=== PATIENT | female | born 1990 | race Caucasian/White ===

== ENCOUNTER 2016-09-30 13:15 | Emergency (ER) | payer OTHER ==
[2016-09-30] MEDS ORDERED: MOTRIN 600 MG PO ONE (13:26)
[2016-09-30] MEDS ORDERED: CORTISPORIN EAR DROPS 10 ML SUSPENSION OT STA (13:27)
[2016-09-30] MEDS ORDERED: CORTISPORIN EAR DROPS 10 ML SUSPENSION OT ONE (13:32)
[2016-09-30] MEDS ORDERED: MOTRIN 600 MG ONE (13:32)
[2016-09-30 13:33] VITALS: BP 107/65; PULSE 100; O2SAT 100
--- NOTE | 2016-09-30 13:34 | ERPHSYRPT ---
- History of Present Illness Time Seen by Provider: 09/30/16 13:24 Source: patient Physician History: right ear pain wihtout d/c after swimming ysterday; otherwise healthy; noother complaints; no prior hx; hearing ok no fever Timing/Duration: abrupt onset, yesterday Severity: severe ENT Location: ear (R) Prearrival Treatment: no prearrival treatment Modifying Factors: Improves With: other (Swimming) Associated Symptoms: ear pain (R) Allergies/Adverse Reactions: No Known Drug Allergies Allergy (Unverified 08/08/12 12:46) Home Medications: Albuterol 8 gm Mdi Hfa [Ventolin Hfa MDI] 8 gm IH PRN 08/08/12 [History] Amoxicillin 500 mg PO TID 08/08/12 [History] Fluticasone/Salmeterol [Advair 100-50 Diskus] 1 each IH BID 08/08/12 [History] Hx Tetanus, Diphtheria Vaccination/Date Given: Yes Hx Influenza Vaccination/Date Given: Yes Hx Pneumococcal Vaccination/Date Given: No - Review of Systems Constitutional: No Symptoms Eyes: No Symptoms Ears, Nose, & Throat: Ear Pain (right side only), No Ear Discharge, No Hearing Changes, No Tinnitus, No Epistaxis, No Throat Pain Respiratory: No Cough, No Dyspnea, No Wheezing Cardiac: No Chest Pain, No Palpitations, No Syncope Abdominal/Gastrointestinal: No Abdominal Pain, No Nausea, No Vomiting, No Diarrhea Genitourinary Symptoms: No Symptoms Musculoskeletal: No Symptoms Skin: No Symptoms Neurological: No Symptoms Psychological: No Symptoms - Past Medical History Pertinent Past Medical History: Yes Respiratory History: Asthma - Past Surgical History Past Surgical History: No - Social History Smoking Status: Current every day smoker Exposure to second hand smoke: Yes Alcohol Use: Socially Drug Use: none Patient Lives Alone: No Significant Family History: no pertinent family hx - Female History Hx Now: No - Physical Exam General Appearance: moderate distress (pain right ear), alert, thin Eye Exam: bilateral eye: normal inspection, PERRL, EOMI Ear Exam: right ear: erythema (external auditory canal), tenderness (external auditory canal), left ear: canal normal, bilateral ear: auricle normal, TM normal Nasal Exam: normal inspection, No dried blood, No foreign body Throat Exam: normal, pharynx normal, moist mucus membranes Neck Exam: normal inspection, non-tender, supple, full range of motion, lymphadenopathy (R), No stiff neck, No Brudzinski's sign, No meningismus Cardiovascular/Respiratory Exam: chest non-tender, normal breath sounds, regular rate/rhythm, heart sounds normal, no JVD, no M/R/G, no respiratory distress Abdominal Exam: non-tender, soft, no organomegaly Neurologic Exam: alert, oriented x 3, cooperative, mold carrier II-XII nml as tested, normal mood/affect, nml cerebellar function, nml station & gait Skin Exam: normal color, warm, dry, No rash - Course Nursing assessment & vital signs reviewed: Yes Ordered Tests: Active Orders 24 hr Category Date Time Status Re-Check Vital Signs STAT Care 09/30/16 13:26 Ordered Medication Summary Discontinued Medications Generic Name Dose Route Start Last Admin Trade Name Freq PRN Reason Stop Dose Admin Ibuprofen 600 mg 09/30/16 13:26 Motrin 600 Mg PO 09/30/16 13:27 STAT ONE Neomycin/Polymyxin/Hydrocortisone 1 ml 09/30/16 13:27 Cortisporin Ear Drops 10 Ml Suspension OT 09/30/16 13:28 STAT STA - Progress Progress Note: 09/30/16 13:33 explained findings, treatment plan, medications given, instructions Counseled pt/family regarding: diagnosis, need for follow-up - Departure Time of Disposition: 13:34 Departure Disposition: Home Clinical Impression: Acute otitis externa of right ear Condition: Stable Critical Care Time: No Instructions: Otitis Externa Additional Instructions: No swimming; keep water out of; use eardrops as directed; Follow-up with family doctor as directed. Call for appointment. Return if any problems. If you smoke please stop. Call or follow up with your family doctor for assistance if you need it to stop. Please wear your seatbelt when driving. Have a nice day. Thank you for allowing us to participate in your care today. :o) Dr Nahid Murrell
== END 2016-09-30 13:44 | disposition home or self-care (01) ==
LOC: ED 13:15
DX: H60.91 Unspecified otitis externa, right ear (principal)
CPT/HCPCS: 99283; A9270-GY

== ENCOUNTER 2017-02-27 19:25 | Emergency (ER) | payer OTHER ==
--- NOTE | 2017-02-27 19:48 | ERPHSYRPT ---
- History of Present Illness Time Seen by Provider: 02/27/17 19:46 Source: patient Exam Limitations: no limitations Patient Subjective Stated Complaint: pt states she has had cough and generalized aches for approx 3 days Triage Nursing Assessment: pt alert and oriented, answers questions approp. pt ambultory with steady gait noted. respirations nonlabored with lungs cta. occasional nonproductive cough noted. Physician History: pt states she has had cough and generalized aches for approx 3 days Timing/Duration: day(s) Cough Quality/Degree: dry cough Associated Symptoms: muscle aches Allergies/Adverse Reactions: No Known Drug Allergies Allergy (Verified 02/27/17 19:44) Home Medications: No Reportable Medications [No Reported Medications] 09/30/16 [History] Hx Tetanus, Diphtheria Vaccination/Date Given: Yes Hx Influenza Vaccination/Date Given: No Hx Pneumococcal Vaccination/Date Given: No Immunizations Up to Date: Yes - Review of Systems Constitutional: Malaise, No Fever, No Chills Eyes: No Symptoms Ears, Nose, & Throat: No Symptoms Respiratory: Cough, No Dyspnea Cardiac: No Chest Pain, No Edema, No Syncope Abdominal/Gastrointestinal: No Abdominal Pain, No Nausea, No Vomiting, No Diarrhea Genitourinary Symptoms: No Dysuria Musculoskeletal: No Back Pain, No Neck Pain Skin: No Rash Neurological: No Dizziness, No Focal Weakness, No Sensory Changes Psychological: No Symptoms Endocrine: No Symptoms All Other Systems: Reviewed and Negative - Past Medical History Pertinent Past Medical History: Yes Respiratory History: Asthma - Past Surgical History Past Surgical History: No Female Surgical History: Tubal Ligation - Social History Smoking Status: Current every day smoker How long have you smoked: 16 yrs Exposure to second hand smoke: Yes Alcohol Use: Socially Drug Use: none Patient Lives Alone: No Significant Family History: no pertinent family hx - Female History Hx Last Menstrual Period: 2 weeks Hx Now: No - Nursing Vital Signs Nursing Vital Signs: Initial Vital Signs Temperature 98.2 F 02/27/17 19:37 Pulse Rate 108 H 02/27/17 19:37 Respiratory Rate 16 02/27/17 19:37 Blood Pressure 97/37 02/27/17 19:37 O2 Sat by Pulse Oximetry 96 02/27/17 19:37 Pain Scale Pain Intensity 4 - Physical Exam General Appearance: no apparent distress, alert Eye Exam: PERRL/EOMI, eyes nml inspection Ears, Nose, Throat Exam: normal ENT inspection, TMs normal, pharynx normal, moist mucous membranes Neck Exam: normal inspection, non-tender, supple, full range of motion Respiratory Exam: normal breath sounds, lungs clear, No respiratory distress Cardiovascular Exam: regular rate/rhythm, normal heart sounds Gastrointestinal/Abdomen Exam: soft, No tenderness Back Exam: normal inspection, No CVA tenderness, No vertebral tenderness Extremity Exam: normal inspection, normal range of motion Neurologic Exam: alert, oriented x 3, cooperative, normal mood/affect, sensation nml, No motor deficits Skin Exam: normal color, warm, dry, No rash Lymphatic Exam: No adenopathy SpO2: 96 Oxygen Delivery: Room Air - Course Nursing assessment & vital signs reviewed: Yes Ordered Tests: Medication Summary Generic Name Dose Route Start Last Admin Trade Name Freq PRN Reason Stop Dose Admin Guaifenesin 600 mg 02/27/17 22:00 Mucinex 600mg Er Tabs PO 03/02/17 21:59 BID GIDEON - Progress Progress: unchanged Air Movement: good Blood Culture(s) Obtained: No Antibiotics given: No Counseled pt/family regarding: diagnosis, need for follow-up - Departure Time of Disposition: 19:47 Departure Disposition: Home Clinical Impression: Influenza A Condition: Stable Critical Care Time: No Referrals: CHRISSY CHACON [Primary Care Provider] - Instructions: Influenza -- Adult Additional Instructions: VIRAL ILLNESS 1. Rest at home and take any prescribed medications as directed or until gone. 2. Offer plenty of fluids as tolerated. 3. Acetaminophen or Ibuprofen as directed. 4. Be sure to follow up with your family physician or return to the emergency department if symptoms change or become worse.
[2017-02-27] MEDS ORDERED: Mucinex 600MG ER Tabs PO ONE (20:03)
[2017-02-27 20:41] VITALS: BP 110/44; PULSE 96; O2SAT 97
[2017-02-27] MEDS ORDERED: Mucinex 600MG ER Tabs PO SCH ×2 (22:00)
== END 2017-02-27 20:54 | disposition home or self-care (01) ==
LOC: ED 19:25
DX: J11.1 Influenza due to unidentified influenza virus with other respiratory manifestations (principal)
CPT/HCPCS: 99282; A9270-GY

== ENCOUNTER 2017-03-01 18:24 | Emergency (ER) | payer OTHER ==
[2017-03-01 18:38] VITALS: PULSE 80
[2017-03-01] MEDS ORDERED: Sodium Chloride 0.9% 1000 ML 1,000 ML IV STA (18:51)
[2017-03-01] MEDS ORDERED: Zofran 4 MG/2 ML VIAL IV ONE (18:52)
--- NOTE | 2017-03-01 18:58 | ERPHSYRPT ---
- History of Present Illness Time Seen by Provider: 03/01/17 18:26 Source: patient Exam Limitations: no limitations Patient Subjective Stated Complaint: PT REPORTS SHE HAD A FEVER OF 100.0 THIS AFTERNOON-STATES THAT SHE HAS BODY ACHES-STATES SHE HAS NOT FELT LIKE EATING OR DRINKING ANYTHING ALL DAY Triage Nursing Assessment: PT PALE WARM ET [id number] ALL EXTREMITIES WITH EASE-PT INSTRUCTED TO STOP DRINKING PEPSI UNTIL PERMITTED BY MD-LUNGS CLEAR -PT STATES SHE HAS HAD A PRODUCTIVE COUGH WITH YELLOW SPUTUM Physician History: patient ill for 48 hours; cough - non-productive; fever and chills wit N&V and diarrhea; no travel; no exposures; sore throat but otherwise no pains; smokes; decreased appetitie; unable to keep anything down today Timing/Duration: today (worse unable to eat or drink), day(s) (3 onset), gradual onset, worse Cough Quality/Degree: mild, dry cough Possible Cause: no prior episodes Modifying Factors: Improves With: coughing Associated Symptoms: fever, chills, cough, headache (mild non-specific), nasal congestion, sore throat, other (N&V&D) International travel in last 2 weeks: No Allergies/Adverse Reactions: No Known Drug Allergies Allergy (Verified 03/01/17 18:33) Hx Tetanus, Diphtheria Vaccination/Date Given: No Hx Influenza Vaccination/Date Given: No Hx Pneumococcal Vaccination/Date Given: No Immunizations Up to Date: Yes - Review of Systems Constitutional: Fever, Chills, Malaise Eyes: No Symptoms Ears, Nose, & Throat: Throat Pain, No Ear Pain, No Epistaxis, No Throat Swelling Respiratory: Cough, No Dyspnea, No Wheezing Cardiac: No Chest Pain, No Palpitations, No Syncope Abdominal/Gastrointestinal: Nausea, Vomiting, Diarrhea, No Abdominal Pain Genitourinary Symptoms: No Symptoms Musculoskeletal: Myalgias, No Back Pain, No Neck Pain, No Fall Skin: Skin Lesions (picl form nerves) Neurological: Headache, No Gait Changes, No Seizure, No Sensory Changes, No Vertigo Psychological: No Symptoms Endocrine: No Symptoms Hematologic/Lymphatic: No Symptoms Immunological/Allergic: No Symptoms - Past Medical History Pertinent Past Medical History: Yes Respiratory History: Asthma - Past Surgical History Past Surgical History: No Female Surgical History: Tubal Ligation - Social History Smoking Status: Current every day smoker How long have you smoked: 16 yrs Exposure to second hand smoke: Yes Alcohol Use: Socially Drug Use: none Patient Lives Alone: No Significant Family History: no pertinent family hx - Female History Hx Last Menstrual Period: FEB 2017 Hx Now: No - Nursing Vital Signs Nursing Vital Signs: Initial Vital Signs Temperature 97.7 F 03/01/17 18:33 Pulse Rate 80 03/01/17 18:33 Respiratory Rate 18 03/01/17 18:33 Blood Pressure 108/69 03/01/17 18:33 O2 Sat by Pulse Oximetry 97 03/01/17 18:33 Pain Scale Pain Intensity 6 - Physical Exam General Appearance: mild distress, alert, anxiety, thin Eye Exam: PERRL/EOMI, eyes nml inspection, photophobia Ears, Nose, Throat Exam: normal ENT inspection, TMs normal, pharynx normal, moist mucous membranes, No pharyngeal erythema, No tonsillar exudate Neck Exam: normal inspection, non-tender, supple, full range of motion, No meningismus, No JVD, No lymphadenopathy Respiratory Exam: normal breath sounds, lungs clear, airway intact, No chest tenderness, No respiratory distress, No crackles/rales, No rhonchi, No wheezing Cardiovascular Exam: regular rate/rhythm, normal heart sounds, normal peripheral pulses, capillary refill <2 sec, No murmur Gastrointestinal/Abdomen Exam: soft, normal bowel sounds, No tenderness, No guarding, No rebound, No organomegaly Pelvic Exam: deferred Rectal Exam: deferred Back Exam: normal inspection, normal range of motion, No CVA tenderness Extremity Exam: normal inspection, normal range of motion, No pamela's sign, No pedal edema Neurologic Exam: alert, oriented x 3, cooperative, batch operator II-XII nml as tested, nml station & gait, sensation nml Skin Exam: normal color, warm, dry, other (multiple diffuse scabby lesions from picking; no infectection noted), No rash Lymphatic Exam: No adenopathy SpO2 Interpretation: normal SpO2: 97 Oxygen Delivery: Room Air - Course Nursing assessment & vital signs reviewed: Yes Ordered Tests: Active Orders 24 hr Category Date Time Status Pulse Oximetry (ED) STAT Care 03/01/17 18:51 Active Re-Check Vital Signs STAT Care 03/01/17 18:51 Active BMP Stat Lab 03/01/17 19:10 Completed CBC W DIFF Stat Lab 03/01/17 19:10 Completed STREP SCREEN-BETA A Stat Lab 03/01/17 19:10 Completed Medication Summary Generic Name Dose Route Start Last Admin Trade Name Juice PRN Reason Stop Dose Admin Sodium Chloride 1,000 mls @ 999 mls/hr 03/01/17 18:51 03/01/17 19:15 Sodium Chloride 0.9% 1000 Ml IV 03/01/17 19:51 999 mls/hr .[id number] STA Administration Discontinued Medications Generic Name Dose Route Start Last Admin Trade Name Juice PRN Reason Stop Dose Admin Sodium Chloride Confirm 03/01/17 19:05 Sodium Chloride 0.9% 1000 Ml Administered 03/01/17 19:06 Dose 1,000 mls @ ud .ROUTE .STK-MED ONE Ondansetron HCl 4 mg 03/01/17 18:52 03/01/17 19:15 Zofran 4 Mg/2 Ml Vial IV 03/01/17 18:53 4 mg STAT ONE Administration Ondansetron HCl Confirm 03/01/17 19:05 Zofran 4 Mg/2 Ml Vial Administered 03/01/17 19:06 Dose 4 mg .ROUTE .STK-MED ONE Penicillin G Benzathine 1.2 mu 03/01/17 19:34 Bicillin L-A 1.2 Mu/2ml Syringe IM 03/01/17 19:35 STAT ONE Penicillin G Benzathine Confirm 03/01/17 19:41 Bicillin L-A 1.2 Mu/2ml Syringe Administered 03/01/17 19:42 Dose 1.2 mu IM .STK-MED ONE Potassium Chloride 20 meq 03/01/17 19:37 Klor Con 10 Meq PO 03/01/17 19:38 STAT ONE Potassium Chloride Confirm 03/01/17 19:40 Klor Con 10 Meq Administered 03/01/17 19:41 Dose 20 meq PO .STK-MED ONE Lab/Rad Data: Laboratory Result Diagrams 03/01/17 19:10 03/01/17 19:10 Laboratory Results 03/01/17 03/01/17 03/01/17 Range/Units 19:10 19:10 19:10 WBC 9.7 (4.0-10.5) K/mm3 RBC 4.02 L (4.1-5.4) M/mm3 Hgb 13.1 (12.0-16.0) gm/dl Hct 38.9 (35-47) % MCV 96.8 (78-100) fl MCH 32.5 H (26-32) pg MCHC 33.7 (32-36) g/dl RDW 11.7 (11.5-14.0) % Plt Count 297 (150-450) K/mm3 MPV 9.5 (6-9.5) fl Gran % 63.9 (36.0-66.0) % Lymphocytes % 21.6 L (24.0-44.0) % Monocytes % 8.8 (0.0-12.0) % Eosinophils % 5.4 H (0.00-5.0) % Basophils % 0.3 (0.0-0.4) % Basophils # 0.03 (0-0.4) Sodium 141 (136-145) mEq/L Potassium 3.1 L (3.5-5.1) mEq/L Chloride 105 (98-107) mEq/L Carbon Dioxide 28.2 (21-32) mEq/L Anion Gap 11.2 (5-15) MEQ/L BUN 5 L (9-20) mg/dL Creatinine 0.68 (0.55-1.30) mg/dl Estimated GFR > 60 ML/MIN Glucose 103 (70-110) MG/DL Calcium 8.6 (8.5-10.1) mg/dL Streptococcus Screen POSITIVE (Negative) reviewed - Progress Progress: improved (after IV fluids and meds), re-examined (after meds and fluids) Air Movement: good Progress Note: 03/01/17 18:58 will give IV fluids bolus for hydration and antiemetic and recheck 03/01/17 19:30 rechecked after IV fluids and meds; 03/01/17 19:38 K+ came back low at 3.2; will give K+ ; strep was positive; will give IM PCN recheck and release; discussed findings and instructions given 03/01/17 19:41 Blood Culture(s) Obtained: No Antibiotics given: No Counseled pt/family regarding: lab results, diagnosis, need for follow-up, smoking cessation - Departure Time of Disposition: 20:00 Departure Disposition: Home Clinical Impression: Hypokalemia, Fever, Strep pharyngitis, Vomiting Condition: Stable Critical Care Time: No Referrals: CHRISSY CHACON [Primary Care Provider] - Instructions: Hypokalemia, Strep Throat Additional Instructions: rest; fluids; K+ rich diet; no work or school 48 hours Follow-up with family doctor as directed. Call for appointment. Return if any problems. If you smoke please stop. Call or follow up with your family doctor for assistance if you need it to stop. Please wear your seatbelt when driving. Have a nice day. Thank you for allowing us to participate in your care today. :o) Dr Nahid Murrell Prescriptions: Loperamide HCl [Imodium A-D] 2 mg PO Q8H PRN PRN #10 tablet PRN Reason: Diarrhea Ondansetron [Zofran Odt] 4 mg PO Q6-8HPRN PRN #10 tab.rapdis PRN Reason: Nausea
[2017-03-01] MEDS ORDERED: Zofran 4 MG/2 ML VIAL ONE (19:05)
[2017-03-01] MEDS ORDERED: Sodium Chloride 0.9% 1000 ML 1,000 ML ONE (19:05)
[2017-03-01 19:20] LABS: BASOPHIL % 0.3 % (0.0-0.4); Eosinophil % 5.4 % (0.00-5.0); Granulocytes % 63.9 % (36.0-66.0); Lymphocytes % 21.6 % (24.0-44.0); Mean Cell Volume 96.8 fl (78-100); Mean Platelet Volume 9.5 fl (6-9.5); Monocytes % 8.8 % (0.0-12.0); Platelet Count 297 K/mm3 (150-450); Red Blood Count 4.02 M/mm3 (4.1-5.4); Red Cell Distribution Width 11.7 % (11.5-14.0); White Blood Count 9.7 K/mm3 (4.0-10.5)
[2017-03-01 19:23] LABS: Mean Corpuscular Hemoglobin 32.5 pg (26-32)
[2017-03-01 19:31] LABS: ANION GAP 11.2 MEQ/L (5-15); BLOOD UREA NITROGEN 5 mg/dL (9-20); CHLORIDE 105 mEq/L (98-107); Carbon Dioxide 28.2 mEq/L (21-32); Glucose 103 MG/DL (70-110); Potassium 3.1 mEq/L (3.5-5.1); SODIUM 141 mEq/L (136-145)
[2017-03-01] MEDS ORDERED: Bicillin L-A 1.2 Mu/2ML SYRINGE IM ONE ×2 (19:34→19:41)
[2017-03-01] MEDS ORDERED: Klor Con 10 MEQ PO ONE ×2 (19:37→19:40)
[2017-03-01 19:50] VITALS: BP 100/40
[2017-03-01 19:54] VITALS: O2SAT 97
== END 2017-03-01 20:33 | disposition home or self-care (01) ==
LOC: ED 18:24
DX: E87.6 Hypokalemia (principal); J02.0 Streptococcal pharyngitis; R11.10 Vomiting, unspecified; R51 Headache; R09.81 Nasal congestion; R11.2 Nausea with vomiting, unspecified
CPT/HCPCS: 36000; 36415; 80048; 85025; 87430; 96360; 99284; J0561; J2405; A9270-GY